=== PATIENT | male | born 1975 | race Two or more races ===

== ENCOUNTER 2020-04-22 05:00 | Day surgery (SDC) | payer OTHER | END 2020-04-22 09:30 | disposition home or self-care (01) | LOC: AMB-ENDOS 05:00 → ADM 13:00 → AMB-ENDOS 13:00 | PROVIDERS: ATTEND Colon & Rectal Surgery | DX: K63.5 Polyp of colon (principal); K64.1 Second degree hemorrhoids ==

== ENCOUNTER 2020-07-30 15:44 | Outpatient (CLI) | payer OTHER | END 2020-07-30 15:55 | disposition home or self-care (01) | LOC: RAD 15:44 | PROVIDERS: ATTEND Orthopaedic Surgery Sports Medicine | DX: M25.562 Pain in left knee (principal); M25.572 Pain in left ankle and joints of left foot ==

== ENCOUNTER 2021-07-07 08:22 | Day surgery (SDC) | payer OTHER | END 2021-07-07 13:30 | disposition home or self-care (01) | LOC: AMB-ENDOS 08:22 | PROVIDERS: ATTEND Colon & Rectal Surgery | DX: K62.89 Other specified diseases of anus and rectum (principal); K64.0 First degree hemorrhoids ==